=== PATIENT | female | born 2000 | race Caucasian/White ===

== ENCOUNTER 2021-04-18 19:17 | Emergency (ER) | payer OTHER ==
[~2021-04-18] VITALS: Ht 152.4 cm; Wt 62.6 kg
[2021-04-18] MEDS ORDERED: SERT25TA85 PO (19:25)
[2021-04-18] MEDS ORDERED: birth control tabs PO (19:26)
[2021-04-18] MEDS ORDERED: CEPH500C PO (23:23)
[2021-04-18 23:28] VITALS: BP 128/65
[2021-04-18] MEDS: CEPHALEXIN 500 MG CAP PO ONE (23:37)
== END 2021-04-18 23:58 | disposition home or self-care (01) ==
LOC: M ED 19:17
DX: L03.317 Cellulitis of buttock (principal); Z79.899 Other long term (current) drug therapy; Z79.3 Long term (current) use of hormonal contraceptives; Z87.2 Personal history of diseases of the skin and subcutaneous tissue; Z98.890 Other specified postprocedural states